=== PATIENT | female | born 2000 | race Caucasian/White ===

== ENCOUNTER 2018-06-10 17:33 | Emergency (ER) | payer SELFPAY ==
[2018-06-10] MEDS ORDERED: HYDROcodone/APAP 5/325MG 1 TAB TABLET PO (18:30)
[2018-06-10] MEDS: oxyCODONE/APAP 5/325 1 TAB TABLET PO (18:38)
[2018-06-10] MEDS ORDERED: HYDROcodone/APAP 7.5/325MG 1 TAB TABLET PO (18:45)
== END 2018-06-10 20:19 | disposition home or self-care (01) ==
LOC: ER 17:33
DX: S52.122A Displaced fracture of head of left radius, initial encounter for closed fracture (principal); X58.XXXA Exposure to other specified factors, initial encounter; Y93.89 Activity, other specified; Y92.89 Other specified places as the place of occurrence of the external cause; Y99.8 Other external cause status
CPT/HCPCS: 29105; 73080; 73090; 99284